=== PATIENT | female | born 1975 | race Caucasian/White ===

== ENCOUNTER 2022-09-13 21:30 | Emergency (ER) | payer BC, SELFPAY ==
[2022-09-13 21:44] VITALS: BP 132/78; PULSE 89; RESP 18; TEMP 36.7; O2SAT 99; BMI 38.0
--- NOTE | 2022-09-13 22:02 | CRLHL7_ITS ---
For Patients: As a result of the Cures Act, medical imaging exams and procedure reports are released immediately into your electronic medical record. You may view this report before your referring provider. If you have questions, please contact your health care provider. INDICATION: Left leg injury. TECHNIQUE: Two views of the left lower leg. FINDINGS: Subtle nondisplaced transverse fracture of the left fibular head. No other fractures. Knee and ankle appear intact. Dictated by Que Parker MD @ 09/13/2022 11:07:59 PM Dictated by: Que Parker MD @ 09/13/2022 23:08:03 (Electronically Signed)
--- NOTE | 2022-09-13 22:04 | CRLHL7_ITS ---
For Patients: As a result of the Cures Act, medical imaging exams and procedure reports are released immediately into your electronic medical record. You may view this report before your referring provider. If you have questions, please contact your health care provider. INDICATION: Knee injury. TECHNIQUE: Two views of the left knee. FINDINGS: Subtle nondisplaced transverse fracture of the left fibular head. Left knee otherwise normal. Dictated by Que Parker MD @ 09/13/2022 11:09:00 PM (Electronically Signed)
--- NOTE | 2022-09-13 22:06 | ED.LOWEXIN ---
HPI - Extremity Injury (Lower) General Time Seen by Provider: 22:07 Date Seen: 09/13/22 Chief Complaint: Extremity Pain/Injury, Lower Stated Complaint: Fall - Left Leg Injury Time Seen by Provider: 09/13/22 22:06 Source: patient and RN notes reviewed Mode of arrival: ambulatory (Arrived on crutches) Limitations: no limitations History of Present Illness HPI Narrative: Patient is a 46-year-old female coming in on crutches stating she cannot bear weight on her left lower extremity due to trauma from the dog. Her dog ran into her anterior medial leg causing her to fall over him and landing on her knees. She points to pain along the lateral proximal fibula/outside of her leg where she is feeling pain. She cannot bear weight on this extremity without causing severe pain. She has been using ice. She had crutches at home and came in on crutches. The knee itself it does not hurt, no ankle pain. She really points to the proximal outer lower extremity along the fibula. This happened just prior to arrival. Nothing else was injured. MD complaint: leg injury and fall Related Data Home Medications Medication Instructions Recorded Confirmed No Known Home Medications 09/13/22 09/13/22 Allergies Allergy/AdvReac Type Severity Reaction Status Date / Time No Known Drug Allergies Allergy Verified 09/13/22 21:52 Review of Systems Narrative: As per HPI [facility] Medical History (Updated 09/13/22 @ 22:51 by Fatimah Hunt MD) No significant past medical history Surgical History (Updated 09/13/22 @ 22:46 by Rey Johnson RN) No significant past surgical history Social History Smoking Status: Never smoker Do you use any of these nicotine containing products: None Second hand tobacco smoke exposure: No How often do you have a drink containing alcohol: never How often do you have six or more drinks on one occasion: Never AUDIT-C Alcohol total score: 0 Non-prescribed substance use: denies use Exam Const: Vital Signs, click to edit/add: Vital Signs - 24 hr 09/13/22 21:44 Temperature 98.0 F Pulse Rate [Right Pulse Oximeter] 89 Respiratory Rate 18 Blood Pressure [Ri ght Upper Arm] 132/78 Pulse Oximetry 99 Oxygen Delivery Me thod Room Air Documenting provider has reviewed patient's vital signs: yes Common normals: no apparent distress, oriented x3, no limitations, healthy appearing, alert and well nourished General appearance: cooperative, comfortable and well kempt Other: She is a very superficial abrasion over the left anterior knee on the left side, left patella is nontender, left knee joint line is nontender. She has pain over the proximal fibula when I palpate. There is no other open wounds on the leg. When I compress her ankle she does state there is some pain there but there is no swelling. The malleoli themselves are nontender ankle itself is not a source of pain baseline. She has no pain in the foot or the toes. No lower extremity swelling at this time. Skin is a little cool from the ice pack that she has been compressing on the superior lateral lower extremity. Neuro: Common normals: oriented x3 Sensorium/orientation: alert Psych: Appearance: well kempt Course Course Hospital Course: Will be x-raying her tibia and fibula on the left side. Have reviewed with her proximal fibula fracture sometimes can have translation to the ligaments in the lower leg. She ultimately may need to see orthopedics. She will continue with ice while we await the x-ray. Vital Signs Vital signs: Initial Vital Signs Temperature 98.0 F 09/13/22 21:44 Temperature Source Temporal Artery Scan 09/13/22 21:44 Pulse Rate 89 09/13/22 21:44 Respiratory Rate 18 09/13/22 21:44 Blood Pressure 132/78 09/13/22 21:44 Blood Pressure Mean 96 09/13/22 21:44 Blood Pressure Position Sitting 09/13/22 21:44 Pulse Oximetry 99 09/13/22 21:44 Oxygen Delivery Method 09/13/22 21:44 Vital Signs Temperature 98.0 F 09/13/22 21:44 Pulse Rate 89 09/13/22 21:44 Respiratory Rate 18 09/13/22 21:44 Blood Pressure 132/78 09/13/22 21:44 Pulse Oximetry 99 09/13/22 21:44 Oxygen Delivery Method 09/13/22 21:44 Temperature 98.0 F 09/13/22 21:44 Pulse Rate 89 09/13/22 21:44 Respiratory Rate 18 09/13/22 21:44 Blood Pressure 132/78 09/13/22 21:44 Pulse Oximetry 99 09/13/22 21:44 Oxygen Delivery Method 09/13/22 21:44 MDM - Extremity Injury (Lower) Imaging Data X-ray of left tibia-fibula: My impression: On my preliminary review, has a proximal fibular head fracture without dislocation. Critical Care Time Critical Care Time Critical Care Time: No Discharge Plan Discharge Clinical Impression: Fracture of fibula, proximal Condition: Stable Instructions: Leg Fracture (ED) Additional Instructions: Use knee immobilizer, crutches for nonweightbearing on this leg. Can open up the immobilizer when leg is elevated to ice the outer portion of your leg to help decrease pain and swelling. Tylenol and/or ibuprofen per bottle directions as needed for pain control. You will need to follow up with Orthopedics, call the office 1st thing Thursday morning to get scheduled, phone number is [phone]. Prescriptions: No Action No Known Home Medications Follow Up/Referrals: Sam Mazariegos PA-C [Primary Care Provider] - Stand Alone Forms: [employer] Info Instructions
[2022-09-13 23:31] VITALS: BP 132/78; PULSE 89; RESP 18; TEMP 36.7
== END 2022-09-13 23:32 | disposition home or self-care (01) ==
PROVIDERS: Emergency Provider Family Medicine; PCP Physician Assistant Medical
DX: S82.831A Other fracture of upper and lower end of right fibula, initial encounter for closed fracture (principal); W54.1XXA Struck by dog, initial encounter
CPT/HCPCS: 73560; 73590; 99283